=== PATIENT | male | born 1995 | race Two or more races ===

== ENCOUNTER → 2022-11-19 06:54 | Outpatient (CLI) | payer OTHER | END | disposition home or self-care (01) | LOC: LAB 06:54 | PROVIDERS: ATTEND Surgery | DX: K64.2 Third degree hemorrhoids (principal); K62.5 Hemorrhage of anus and rectum; K62.89 Other specified diseases of anus and rectum; K64.5 Perianal venous thrombosis; I10 Essential (primary) hypertension; Z01.810 Encounter for preprocedural cardiovascular examination ==

== ENCOUNTER 2022-11-27 07:00 | Day surgery (SDC) | payer OTHER ==
[~2022-11-27] VITALS: Ht 175.3 cm; Wt 68.0 kg
[2022-11-27] MEDS ORDERED: OXYC1TAB9 PO (12:05)
== END 2022-11-27 17:30 | disposition home or self-care (01) ==
LOC: CIR.AMB 07:00
PROVIDERS: ATTEND Surgery
DX: K64.8 Other hemorrhoids (principal); K64.4 Residual hemorrhoidal skin tags; K64.5 Perianal venous thrombosis; K62.5 Hemorrhage of anus and rectum; K62.89 Other specified diseases of anus and rectum; Z20.822 Contact with and (suspected) exposure to COVID-19